=== PATIENT | female | born 1975 | race Caucasian/White ===

== ENCOUNTER 2019-10-06 15:59 | Inpatient (IN) | payer BC ==
--- NOTE | 2019-10-06 16:17 | ED ---
Psychiatric Complaint - HPI Summary HPI Summary: 43 y/o F with hx anorexia, anxiety, depression presenting to [facility] c/o worsening SI, depression, anhedonia, insomnia for 1 month. Patient thinks she is on the verge of having a manic episode. Patient reports leaving the house at 2 am, screaming at her . She hasn't eaten in 2 days. She is worried about the foods and calories she is consuming. She also hasn't slept. She has lost interest in all things that normally make her happy. She denies HI, auditory/visual hallucinations. She doesn't have a suicidal plan. She states she would never commit suicide because of her children but she has thought about taking all her medications to overdose. Patient hadn't seen a psychiatrist in 10 years until last week. She saw new psychiatrist last week who prescribed her a mood stabilizer. Patient doesn't think her medications are working. She continues to have worsening symptoms. She reports her new psychiatrist thinks she may have bipolar disorder. She has been seen by inpatient psychiatry at other facilities but never here. Patient additionally c/ o worsening migraine headaches for 1 month. Hx migraine headaches. Symptoms aggravated by and alleviated by nothing. Medications reviewed. Currently on antibiotics for UTI. Hx endometriosis. Surgical hx: C-sections x2, hysterectomy 3 years ago, oophorectomy. Rare ETOH. Reports 1-2 drinks per year. No recreational or tobacco use. - History Of Current Complaint Chief Complaint: EDSuicidal Time Seen by Provider: 10/06/19 16:05 Hx Obtained From: Patient Onset/Duration: Lasting Weeks - 4, Still Present Timing: Constant Aggravating Factor(s): Nothing Alleviating Factor(s): Nothing Has Suicidal: Reports: Thoughts. Denies: With A Plan Has Homicidal: Denies: Thoughts - Allergies/Home Medications Allergies/Adverse Reactions: Allergies Allergy/AdvReac Type Severity Reaction Status Date / Time No Known Allergies Allergy Verified 10/06/19 16:05 Home Medications: Home Medications Diclofenac Sodium EC TAB* [Voltaren EC TAB*] 50 mg PO Q8HR PRN 10/06/19 [ History Confirmed 10/06/19] Sumatriptan Succ/Naproxen Sod [Sumatriptan/Naproxen Sodi 85-500 mg] 1 tab PO DAILY PRN MDD 2 tabs 10/06/19 [History Confirmed 10/06/19] Venlafaxine EXT RELEASE CAP* [Effexor Xr CAP*] 375 mg PO DAILY 10/06/19 [ History Confirmed 10/06/19] clonazePAM TAB(*) [KlonoPIN TAB(*)] 1 mg PO TID PRN 10/06/19 [History Confirmed 10/06/19] lamoTRIgine TAB(*) [LaMICtal TAB(*)] 25 mg PO DAILY 10/06/19 [History Confirmed 10/06/19] PMH/Surg Hx/FS Hx/Imm Hx History: Reports: Other Problems/Disorders - endometriosis Neurological History: Reports: Hx Migraine Psychiatric History: Reports: Hx Anxiety, Hx Eating Disorder - anorexia, Hx Depression - Surgical History Surgical History: Yes Surgery Procedure, Year, and Place: C-sections x2, hysterectomy 3 years ago, oophorectomy Infectious Disease History: No Infectious Disease History: Denies: Traveled Outside the [place] in Last 30 Days - Social History Alcohol Use: Rare Alcohol Amount: 1-2 drinks per year Substance Use Type: Reports: None Hx Tobacco Use: No Smoking Status (MU): Never Smoked Tobacco Review of Systems Negative: Fever Positive: Other - worsening SI, depression, anhedonia, insomnia; NEG: suicidal plan, HI, auditory/visual hallucinations All Other Systems Reviewed And Are Negative: Yes Physical Exam - Summary Physical Exam Summary: Constitutional: Well-developed, Well-nourished, Alert. (-) Distressed Skin: Warm, Dry HENT: Normocephalic; Atraumatic Eyes: Conjunctiva normal Neck: Musculoskeletal ROM normal neck. (-) JVD, (-) Stridor, (-) Tracheal deviation Cardio: Rhythm regular, rate normal, Heart sounds normal; Intact distal pulses; Radial pulses are 2+ and symmetric. (-) Murmur Pulmonary/Chest wall: Effort normal. (-) Respiratory distress, (-) Wheezes, (-) Rales Abd: Soft, (-) tenderness, (-) Distension, (-) Guarding, (-) Rebound Musculoskeletal: (-) Edema Lymph: (-) Cervical adenopathy Neuro: Alert, Oriented x3 Psych: She is tearful at points Triage Information Reviewed: Yes Vital Signs On Initial Exam: Initial Vitals Temp Pulse Resp BP Pulse Ox 98.1 F 96 17 126/79 100 10/06/19 16:01 10/06/19 16:01 10/06/19 16:01 10/06/19 16:01 10/06/19 16:01 Vital Signs Reviewed: Yes Procedures - Sedation Patient Received Moderate/Deep Sedation with Procedure: No Diagnostics - Vital Signs Vital Signs Temp Pulse Resp BP Pulse Ox 10/06/19 16:01 98.1 F 96 17 126/79 100 - Laboratory Result Diagrams: 10/06/19 16:18 10/06/19 17:40 Lab Statement: Any lab studies that have been ordered have been reviewed, and results considered in the medical decision making process. Re-Evaluation - Re-Evaluation First Eval Re-Evaluation Time: 16:19 - Patient is medically cleared for MHE Course/Dx - Course Course Of Treatment: Patient is here with worsening anxiety, eating disorder symptoms, paranoia. Patient does have suicidal ideation but would not commit suicide as she has a family per her. Patient was medically cleared by myself. Patient was evaluated by the psychiatric team and patient was admitted to the BSU voluntarily. - Differential Dx/Clinical Impression Provider Diagnosis: Major depressive disorder, Unspecified psychosis - Physician Notifications Discussed Care Of Patient With: Ascencion Dietrich Time Discussed With Above Provider: 18:01 Instructed by Provider To: Other - Psychiatric spooler operator reviewed case with Dr. Dietrich. Patient will be admitted voluntarily. Discharge ED - Sign-Out/Discharge Documenting (check all that apply): Patient Departure - Discharge Plan Condition: Stable Disposition: [facility]IATRIC FACILITY[facility] Referrals: Dereje Botello PA [Primary Care Provider] - - Billing Disposition and Condition Condition: STABLE Disposition: Psychiatric Facility [facility] - Attestation Statements Document Initiated by Scribe: Yes Documenting Scribe: Estefania Shearer Provider For Whom Marina is Documenting (Include Credential): Israel Healy MD Scribe Attestation: Estefania Galvin, scribed for Israel Healy MD on 10/06/19 at 1921. Scribe Documentation Reviewed: Yes Provider Attestation: The documentation as recorded by the Estefania lawton accurately reflects the service I personally performed and the decisions made by me, Israel Healy MD Status of Scribe Document: Viewed
[2019-10-06 16:47] LABS: Urine Appearance Cloudy; Urine Bilirubin Negative (Negative); Urine Blood Negative (Negative); Urine Color Yellow; Urine Glucose Negative (Negative); Urine Ketones Negative (Negative); Urine Nitrite Negative (Negative); Urine Protein Negative (Negative); Urine Specific Gravity 1.009 (1.010-1.030); Urine Urobilinogen Negative (Negative)
[2019-10-06 16:59] LABS: Urine Benzodiazepine Screen None Detected (None Detect); Urine Opiates Screen None Detected (None Detect)
[2019-10-06 17:51] LABS: ABS Basophils 0.1 10^3/ul (0-0.2); ABS Eosinophils 0.1 10^3/ul (0-0.6); ABS Lymphocytes 1.9 10^3/ul (1.0-4.8); ABS Monocytes 0.4 10^3/ul (0-0.8); ABS Neutrophils 4.6 10^3/ul (1.5-7.7); Eosinophil % 1.1 %; Hematocrit 39 % (35-47); Hemoglobin 13.4 g/dL (12.0-16.0); Lymphocyte % 27.7 %; Mean Corpuscular HGB Conc 34 g/dL (31-36); Mean Corpuscular Hemoglobin 31 pg (27-31); Mean Corpuscular Volume 92 fL (80-97); Mean Platelet Volume 7.9 fL (7.4-10.4); Platelet Count 235 10^3/uL (150-450); Red Blood Count 4.29 10^6 /uL (3.70-4.87); Red Cell Distribution Width 13 % (10-15)
[2019-10-06 18:13] LABS: Albumin 4.2 g/dL (3.2-5.2); Anion Gap 6 mmol/L (2-11); CO2 Carbon Dioxide 29 mmol/L (22-32); Calcium 9.2 mg/dL (8.6-10.3); Chloride 103 mmol/L (101-111); Potassium 3.9 mmol/L (3.5-5.0); Sodium 138 mmol/L (135-145)
[2019-10-06 18:18] LABS: ALT 13 U/L (7-52); AST 17 U/L (13-39); Albumin/Globulin Ratio 1.6 (1-3); Alkaline Phosphatase 43 U/L (34-104); BUN/Creatinine Ratio 14.6 (8-20); Blood Urea Nitrogen 12 mg/dL (6-24); EGFR African American 92.5 (>60); EGFR Non-African American 76.5 (>60); Globulin 2.7 g/dL (2-4); Glucose 97 mg/dL (70-100); Total Protein 6.9 g/dL (6.4-8.9)
[2019-10-06 18:24] LABS: Acetaminophen < 15 mcg/mL; Alcohol < 10 mg/dL (<10); Salicylate < 2.50 mg/dL (<30)
[2019-10-06] MEDS ORDERED: Al Hydrox/Mg Hydrox/Simet LIQ* 30 ML UDC PO PRN (20:08)
[2019-10-07] MEDS: Vitamin THERAPEUTIC TAB PO SCH (08:40)
[2019-10-07] MEDS: lamoTRIgine TAB(*) 25 MG PO SCH (08:40)
[2019-10-07] MEDS ORDERED: Venlafaxine EXT RELEASE CAP* 75 MG PO SCH (09:00)
--- NOTE | 2019-10-07 09:39 | HP ---
H&P (Free Text) History and Physical: Justification for admission: Immediate Safety. CC " I have been depressed" The patient was brought to [facility] on her own after having suicidal thoughts of overdosing on pills. The patient reported not feeling luis from doing things that once made her feel luis. She denied access to firearms. She reported not sleeping well and wakes up worrying a lot. She reported restricting her food intake over the last 2 days. The patient feels that she is not good enough for anything and despite her family telling her that she is pretty or beautiful she thinks they are lying. She often worries that she is not a good enough or mother. Patient remarked having mood swings and getting upset at her for wanting to take her and her children to [place]. The patient denied homicidal ideation intent or plan. The patient denied auditory and/ or visual hallucinations. The patient often feels left out and reflected on how this is a reoccurring theme in her life. Depression Patient reported feeling depressed and having diminished interests which were found to be enjoyable in the past. She reported having crying spells , and feeling hopeless , and having feelings of worthlessness. She reported unintentional weight loss and loss of appetite. She reported interruption of sleep , and overwhelming feelings of guilt or decreased concentration. She has been having increased suicidal thoughts. Eating disorders: Patient has a history of anorexia and has been restricting her food intake for the past 2 days. Anxiety She reported feeling restless, and often worries about being a good enough or mother. Bipolar She reported rapid mood swings that do not last more than one day. She describes them as intense periods of irritability. She denied symptoms of parveen such as having many ideas at once, increased talkativeness where no one can interrupt. Denied feeling irritable most of the time while having an persistent abundance of energy , having the decreased need to sleep for days , or prolong periods of feeling on top of the world. Denied impulsive risky sexual encounters. Denied spending money recklessly , going on spending sprees wiping out savings. Denied impulsively traveling out of town or country, having super narayan, and unrealistic wealth or fame. Psychosis Does not endorse hearing things that other people do not hear or seeing things other people do not see. Denied feeling that TV is making references. Denied feeling that people are spying , following , or reading their thoughts. Phobias: Patient denied having excessive fear of a particular thing or situation. PTSD Denied flashbacks, nightmares and avoidance of a prior traumatic event. PAST PSYCHIATRIC HISTORY: Prior Diagnosis : Anorexia nervosa, Major depressive disorder, Generalized anxiety disorder. History of past Psychiatric Hospitalizations: 2 prior psychiatric admission for anorexia at [facility] and [facility] in [place]. History of past suicide/homicide attempts : 2 past suicide attempts around age 16 , both times she Overdosed on pills. She denied repeated self injurious behavior. Denied history of violence. Outpatient follow-up: Dr. Cool Psychiatrist in [facility]. Patient currently in couples counseling. Medications: Past trials of medications include Abilify, seroquel. Current medications include Effexor 375mg po daily since 3 years ago by PCP, Klonopin for anxiety, Lamotrigine 25mg po daily started one week ago by Psychiatrist. Guardianship: None. FAMILY HISTORY: - Suicide: Denied family history of suicide. - Mental illness: Sister has bipolar disorder, mother depression - Substance abuse: Denied substance abuse among family members. SUBSTANCE ABUSE HISTORY: - EtOH: 1-2 drinks per year. - Tobacco: Denied - Cannabis: Denied - Heroin: Denied - Cocaine: Denied - Substance abuse treatment: Denied past substance abuse treatment SOCIAL HISTORY: - Born in [place], [place] and raised by her mother, her father left her mother when she was , She now has some contact with her biological father. - Education: No history of special education. - Living situation: Currently lives in [facility] with her and 2 children - Employment history: Works as a travel specialist in [place] - Relationship: and has 2 children. - Legal history: Denied - service history: Denied PAST MEDICAL HISTORY: Headaches, history of UTI, Endometriosis. Surgical history includes hysterectomy and oophorectomy - Allergies: Denied drug or other allergies. Physical Exam: Please see ED note Mental Status Exam on Admission APPEARANCE : 43 year old female who appears stated age. Patient is thin, and appears to have fair hygiene and grooming. BEHAVIOR: Cooperative , calm EYE CONTACT: Fair PSYCHOMOTOR ACTIVITY: No psychomotor agitation or retardation. MOVEMENTS: No abnormal movements observed. SPEECH : Normal rate, rhythm, volume and tone. MOOD : "Depressed " AFFECT : Type is depressed and anxious, Range is restricted Mood Congruent Incongruent THOUGHT PROCESS: Formulated and organized in a logical, linear goal directed manner. No flight of ideas, neologism (made up words) , perseveration , tangential , loose associations , or circumstantiality, Poverty of thought, thought blocking THOUGHT CONTENT: preoccupation with body image PERCEPTION: No current auditory or visual hallucinations. Doesnt appear to be responding to internal cues. No evidence of depersonalization , de-realization, or illusions SUICIDALITY Suicidal ideation HOMICIDALITY Denied homicidal ideation, intent or plan. Insight/judgment: Poor insight and judgment ORIENTATION: Oriented to self, location, and time. Diagnosis on Admission: Anorexia nervosa, Major depressive disorder, Generalized anxiety disorder. Assessment: 43 year old Female with a history of Anorexia nervosa, Major depressive disorder, Generalized anxiety disorder presented to the emergency department with suicidal ideation and was admitted to the BSU at [facility]. Plan #Admit to BSU, Q15 minute observation. Start vegetarian diet. Encourage participation in group therapy and psychoeducation # Nutrition Consult #Patient evaluated in ED and was determined by the emergency room Physician to be medically fit for admission to the BSU. # Justification for Admission: For immediate safety per outlined in the [place] Mental Hygiene Code. # The patient requires psychiatric inpatient admission at this time to assure safety, receive treatment and work toward stabilization. # Labs ordered: CBC, CMP, UDS, TSH, HBA1c, TSH, Toxicology screen, Urine analysis, and lipid profile. # Plan to monitor for metabolic changes by weight, HBA1c, glucose, and lipid panel # EKG ordered # Monitor food intake # Start Remeron 7.5mg qhs # Confirmed Effexor dose 375mg po daily from the patients pharmacy. #Continue lamotrigine 25mg daily she denied any skin changes. # B-HCG was ordered and results are negative. # Obtain collateral information once release is signed. # Collaboration with Media Analyst Joy Jung #Goals before discharge include: Psychiatric Stabilization Patient strengths: Motivation to want to get better Tentative Discharge: Pending hospital course and response to treatment The risks, benefits, and alternative treatment options were discussed as well as the risks of refusing treatment. After this discussion and an acknowledgement of this understanding was made. A risk/ benefit assessment of treatment was considered and discussed with the patient. When comparing the risks of treatment with the dangers of not receiving treatment, the benefits of treatment outweigh the treatment risks at this time. Risks of allergy, suicidal ideation, behavioral changes, dystonia, electrolyte imbalances, movement disorders, cardiac conduction changes, serotonin syndrome, metabolic risks were among some of the risks discussed. Acetaminophen (Tylenol Tab*) 650 mg PO Q4H PRN PRN Reason: PAIN or TEMP > 101 F Al Hydrox/Mg Hydrox/Simethicone (Maalox Plus*) 30 ml PO Q4H PRN PRN Reason: INDIGESTION Clonazepam (Klonopin Tab(*)) 1 mg PO TID PRN PRN Reason: ANXIETY Diclofenac Sodium (Voltaren Ec Tab*) 50 mg PO Q8H PRN PRN Reason: PAIN - MILD Lamotrigine (Lamictal Tab(*)) 25 mg PO DAILY [facility] Last Admin: 10/07/19 08:40 Dose: 25 mg Mirtazapine (Remeron Tab*) 7.5 mg PO BEDTIME [facility] Multivitamins (Theragran Tab*) 1 tab PO DAILY [facility] Last Admin: 10/07/19 08:40 Dose: 1 tab Naproxen (Naprosyn Tab*) 500 mg PO DAILY PRN PRN Reason: PAIN-MIGRAINE Sumatriptan Succinate (Imitrex Tab*) 100 mg PO DAILY PRN PRN Reason: MIGRAINE HEADACHE Venlafaxine HCl (Effexor Xr Cap*) 375 mg PO DAILY [facility]
[2019-10-07 11:00] LABS: HCG Pregnancy 0.12 mIU/mL
[2019-10-07] MEDS ORDERED: Venlafaxine EXT RELEASE CAP* 75 MG PO ONE (12:20)
[2019-10-07] MEDS ORDERED: Venlafaxine ER (NF) 150 MG CAP.ER PO SCH (13:00)
[2019-10-07] MEDS: Diclofenac Sodium EC TAB* 25 MG PO PRN (14:59)
[2019-10-07] MEDS: SUMAtriptan TAB* 100 MG PO PRN (15:00)
[2019-10-07] MEDS: Mirtazapine TAB* 15 MG PO SCH (21:44)
[2019-10-07] MEDS: Acetaminophen TAB* 325 MG PO PRN (21:45)
[2019-10-08 08:26] LABS: HDL Cholesterol 62.1 mg/dL
[2019-10-08] MEDS: Venlafaxine EXT RELEASE CAP* 75 MG PO SCH (08:58)
[2019-10-08] MEDS: lamoTRIgine TAB(*) 25 MG PO SCH (08:59)
[2019-10-08] MEDS: Vitamin THERAPEUTIC TAB PO SCH (08:59)
--- NOTE | 2019-10-08 11:24 | PN ---
Subjective - Subjective Date of Service: 10/08/19 Service Type: [id number] Hosp care 35 min high complexity Subjective: Nursing Report: Patient was visible on unit, no behavioral incidents. Slept 6hrs overnight. Attending group activities. CC: "I am doing better This patient was seen and evaluated today. She reported feeling foggy when she first woke up. She spoke about the sap trainer that she became friends with and how her found out about 800 text messages. She reported being fearful about weighing herself because she will think she needs to lose 20 pounds. She expressed missing the link trainer maintenance man and wants to know ways to stop thinking about him. She reported getting better sleep than she usually does. She asked about exercising and when she doesnt she feels inadequate about herself. She reported eating salad last night and did not eat dinner. She reported having adequate appetite and sleep. The patient reported attending day groups. Per nursing no behavioral issues or overnight events reported. Patient reported that she is tolerating medications without side effects. Objective - General Observations Appearance: Neat Appears Stated Age: Yes Stature: WNL Posture: WNL Eye Contact: Average Behavior/Activity: WNL - Interaction Observations Attitude Towards Examiner: Cooperative Stated Mood: Dysphoric Affect: Restricted Speech Pattern/Tone: Quiet Volume Thought Process: Coherent Perception: WNL Thought Content: Obsessional, Depressive, Self-Deprecatory Thought Process: Lethality: Passive Wish Hallucination Type: Denies Delusion Type: Denies - Cognitive Function Orientation: A&O x 4 Level of Consciousness: Awake Cognition: WNL - Medication Compliance Cooperative with Inpatient Medication Regimen: Yes - Group Participation Participates in Group Activities: Yes Assessment - Assessment Merits Inpatient Hospitalization: For Immediate Safety Clinical Impression: 43 year old Female with a history of Anorexia nervosa, Major depressive disorder, Generalized anxiety disorder presented to the emergency department with suicidal ideation and was admitted to the BSU at [facility]. Plan - Plan Treatment Plan: Name: GOPAL LUNA Birthdate: 1975 [id number] #Q30 minute observation with staff pass # Nutrition Consult completed # The patient requires psychiatric inpatient admission at this time to assure safety, receive treatment and work toward stabilization. # Continue Remeron 7.5mg qhs # Confirmed Effexor dose 375mg po daily this dose was confirmed from the patients pharmacy. #Continue lamotrigine 25mg daily she denied any skin changes. # Obtain collateral information once release is signed. # Collaboration with Shipping Hand Joy Jung # Recommend continuing CBT once discharged #Goals before discharge include: Psychiatric Stabilization Patient strengths: Motivation to want to get better Tentative Discharge: Pending hospital course and response to treatment Continued Medication Management: Continue Outpt Medication Medications: Current Medications Acetaminophen (Tylenol Tab*) 650 mg PO Q4H PRN PRN Reason: PAIN or TEMP > 101 F Last Admin: 10/07/19 21:45 Dose: 650 mg Al Hydrox/Mg Hydrox/Simethicone (Maalox Plus*) 30 ml PO Q4H PRN PRN Reason: INDIGESTION Clonazepam (Klonopin Tab(*)) 1 mg PO TID PRN PRN Reason: ANXIETY Diclofenac Sodium (Voltaren Ec Tab*) 50 mg PO Q8H PRN PRN Reason: PAIN - MILD Last Admin: 10/07/19 14:59 Dose: 50 mg Lamotrigine (Lamictal Tab(*)) 25 mg PO DAILY [facility] Last Admin: 10/08/19 08:59 Dose: 25 mg Mirtazapine (Remeron Tab*) 7.5 mg PO BEDTIME [facility] Last Admin: 10/07/19 21:44 Dose: 7.5 mg Multivitamins (Theragran Tab*) 1 tab PO DAILY [facility] Last Admin: 10/08/19 08:59 Dose: 1 tab Naproxen (Naprosyn Tab*) 500 mg PO DAILY PRN PRN Reason: PAIN-MIGRAINE Sumatriptan Succinate (Imitrex Tab*) 100 mg PO DAILY PRN PRN Reason: MIGRAINE HEADACHE Last Admin: 10/07/19 15:00 Dose: 100 mg Venlafaxine HCl (Effexor Xr Cap*) 375 mg PO DAILY [facility] Last Admin: 10/08/19 08:58 Dose: 375 mg - Discharge Plan Discharge Plan: Inpatient Hospitalization
[2019-10-08] MEDS: Mirtazapine TAB* 15 MG PO SCH (21:09)
[2019-10-09] MEDS: clonazePAM TAB(*) 1 MG PO PRN (08:17)
[2019-10-09] MEDS: lamoTRIgine TAB(*) 25 MG PO SCH (08:18)
[2019-10-09] MEDS: Venlafaxine EXT RELEASE CAP* 75 MG PO SCH (08:18)
[2019-10-09] MEDS: Vitamin THERAPEUTIC TAB PO SCH (08:18)
[2019-10-09] MEDS ORDERED: Polyethylene Glycol 3350* 17 GM PACKET PO ONE (10:10)
--- NOTE | 2019-10-09 11:02 | PN ---
Subjective - Subjective Date of Service: 10/09/19 Service Type: [id number] Hosp care 35 min high complexity Subjective: Nursing Report: Patient was visible on unit, no behavioral incidents. Poor sleep overnight. Attending group activities. CC: "I am mad at myself This patient was seen and evaluated today. She reported being mad at herself because she called her software trainer and felt horrible for doing it afterwards. She reported feeling bloated after eating. She reported that the person next to her kept her up last night and she did not receive good sleep. She ate salad for breakfast. The patient reported attending day groups. Per nursing no behavioral issues or overnight events reported. Patient reported that she is tolerating medications without side effects. The patient reported that her therapist was going to find out if the color strainer she was seeing has a criminal history. Objective - General Observations Appearance: Neat Appears Stated Age: Yes Stature: Thin Posture: WNL Eye Contact: Average Behavior/Activity: WNL - Interaction Observations Attitude Towards Examiner: Cooperative, Anxious Stated Mood: Dysphoric Affect: Restricted Speech Pattern/Tone: Quiet Volume Thought Process: Coherent, Goal Directed Perception: Reexperiencing Thought Content: Preoccupation/Ruminations, Obsessional, Self-Deprecatory Thought Process: Lethality: Passive Wish Hallucination Type: Denies Delusion Type: Denies - Cognitive Function Orientation: A&O x 4 Level of Consciousness: Awake Cognition: WNL - Medication Compliance Cooperative with Inpatient Medication Regimen: Yes - Group Participation Participates in Group Activities: Yes Assessment - Assessment Merits Inpatient Hospitalization: For Immediate Safety Clinical Impression: 43 year old Female with a history of Anorexia nervosa, Major depressive disorder, Generalized anxiety disorder presented to the emergency department with suicidal ideation and was admitted to the B[facility] at [facility]. Plan - Plan Treatment Plan: Name: GOPAL LUNA Birthdate: 1975 [id number] #Q30 minute observation with staff pass and computer # Nutrition Consult completed # The patient requires psychiatric inpatient admission at this time to assure safety, receive treatment and work toward stabilization. # Increase Remeron 15mg qhs # Confirmed Effexor dose 375mg po daily this dose was confirmed from the patients pharmacy. #Continue lamotrigine 25mg daily she denied any skin changes. # Collaboration with Electronics Mechanic Joy Jung # Recommend continuing CBT once discharged #Goals before discharge include: Psychiatric Stabilization Patient strengths: Motivation to want to get better Tentative Discharge: Pending hospital course and response to treatment Continued Medication Management: Continue Outpt Medication Medications: Current Medications Acetaminophen (Tylenol Tab*) 650 mg PO Q4H PRN PRN Reason: PAIN or TEMP > 101 F Last Admin: 10/07/19 21:45 Dose: 650 mg Al Hydrox/Mg Hydrox/Simethicone (Maalox Plus*) 30 ml PO Q4H PRN PRN Reason: INDIGESTION Clonazepam (Klonopin Tab(*)) 1 mg PO TID PRN PRN Reason: ANXIETY Last Admin: 10/09/19 08:17 Dose: 1 mg Diclofenac Sodium (Voltaren Ec Tab*) 50 mg PO Q8H PRN PRN Reason: PAIN - MILD Last Admin: 10/07/19 14:59 Dose: 50 mg Lamotrigine (Lamictal Tab(*)) 25 mg PO DAILY [facility] Last Admin: 10/09/19 08:18 Dose: 25 mg Mirtazapine (Remeron Tab*) 15 mg PO BEDTIME [facility] Multivitamins (Theragran Tab*) 1 tab PO DAILY [facility] Last Admin: 10/09/19 08:18 Dose: 1 tab Naproxen (Naprosyn Tab*) 500 mg PO DAILY PRN PRN Reason: PAIN-MIGRAINE Sumatriptan Succinate (Imitrex Tab*) 100 mg PO DAILY PRN PRN Reason: MIGRAINE HEADACHE Last Admin: 10/07/19 15:00 Dose: 100 mg Venlafaxine HCl (Effexor Xr Cap*) 375 mg PO DAILY [facility] Last Admin: 10/09/19 08:18 Dose: 375 mg - Discharge Plan Discharge Plan: Inpatient Hospitalization
--- NOTE | 2019-10-09 11:53 | PN ---
BSU: Group Therapy Note - Service Type Service Type: [id number] Group Psychotherapy - Cognitive Behavioral Group Therapy ( CBT):Patient was attentive and participatory in CBT programming this morning, and remained in good behavioral control. Patient expressed positive insights regarding relevant treatment interventions and goals. Further discussion addressed her difficulties with a former logging crew supervisor and how to find alternate ways to express frustration, other than exercise. Presents with good affect and takes notes in group, and interacts well with staff and peers.
[2019-10-09] MEDS: Mirtazapine TAB* 15 MG PO SCH (20:39)
[2019-10-10] MEDS: Venlafaxine EXT RELEASE CAP* 75 MG PO SCH (09:17)
[2019-10-10] MEDS: lamoTRIgine TAB(*) 25 MG PO SCH (09:18)
[2019-10-10] MEDS: Vitamin THERAPEUTIC TAB PO SCH (09:18)
[2019-10-10] MEDS: clonazePAM TAB(*) 1 MG PO PRN ×2 (09:20→15:58)
--- NOTE | 2019-10-10 10:14 | PN ---
Subjective - Subjective Date of Service: 10/10/19 Service Type: [id number] Hosp care 35 min high complexity Subjective: Nursing Report: Patient was visible on unit, no behavioral incidents. Attending group activities. CC: "I am depressed This patient was seen and evaluated today. She reported that her call center trainer lied to her and said that he knows someone at the hospital that told him that she was at the hospital. The patient reported that she lied to her about who told her because he didnt want to get him upset. The patient reported eating and feeling bad about it. Patient reported that she is tolerating medications without side effects. Objective - General Observations Appearance: Neat Appears Stated Age: Yes Stature: WNL Posture: Tense Eye Contact: Average Behavior/Activity: Accelerated, Impulsive - Interaction Observations Attitude Towards Examiner: Anxious Stated Mood: Anxious Affect: Restricted Speech Pattern/Tone: Normal Volume Thought Process: Coherent Perception: WNL Thought Content: Preoccupation/Ruminations, Obsessional, Depressive, Self- Deprecatory Thought Process: Lethality: Passive Wish Hallucination Type: Denies Delusion Type: Somatic - Cognitive Function Orientation: A&O x 4 Level of Consciousness: Awake Cognition: WNL Estimated Intelligence: Normal Insight: Mostly Blames Others for Problems - Medication Compliance Cooperative with Inpatient Medication Regimen: Yes - Group Participation Participates in Group Activities: Yes Assessment - Assessment Merits Inpatient Hospitalization: For Immediate Safety Clinical Impression: 43 year old Female with a history of Anorexia nervosa, Major depressive disorder, Generalized anxiety disorder presented to the emergency department with suicidal ideation and was admitted to the BSU at [facility]. Plan - Plan Treatment Plan: Name: GOPAL LUNA Birthdate: 1975 [id number] #Q30 minute observation with staff pass and computer 1hr/ day # Nutrition Consult completed # The patient requires psychiatric inpatient admission at this time to assure safety, receive treatment and work toward stabilization. # Remeron 15mg qhs # Do not give laxative # Confirmed Effexor dose 375mg po daily this dose was confirmed from the patients pharmacy. # Increase lamotrigine 50mg daily to monitor for any skin changes. # Collaboration with Teacher'S Aide Joy Jung # Recommend continuing CBT once discharged #Goals before discharge include: Psychiatric Stabilization Patient strengths: Motivation to want to get better Tentative Discharge: Pending hospital course and response to treatment Continued Medication Management: Continue Outpt Medication Medications: Current Medications Acetaminophen (Tylenol Tab*) 650 mg PO Q4H PRN PRN Reason: PAIN or TEMP > 101 F Last Admin: 10/07/19 21:45 Dose: 650 mg Al Hydrox/Mg Hydrox/Simethicone (Maalox Plus*) 30 ml PO Q4H PRN PRN Reason: INDIGESTION Clonazepam (Klonopin Tab(*)) 1 mg PO TID PRN PRN Reason: ANXIETY Last Admin: 10/10/19 09:20 Dose: 1 mg Diclofenac Sodium (Voltaren Ec Tab*) 50 mg PO Q8H PRN PRN Reason: PAIN - MILD Last Admin: 10/07/19 14:59 Dose: 50 mg Mirtazapine (Remeron Tab*) 15 mg PO BEDTIME [facility] Last Admin: 10/09/19 20:39 Dose: 15 mg Multivitamins (Theragran Tab*) 1 tab PO DAILY [facility] Last Admin: 10/10/19 09:18 Dose: 1 tab Naproxen (Naprosyn Tab*) 500 mg PO DAILY PRN PRN Reason: PAIN-MIGRAINE Sumatriptan Succinate (Imitrex Tab*) 100 mg PO DAILY PRN PRN Reason: MIGRAINE HEADACHE Last Admin: 10/07/19 15:00 Dose: 100 mg Venlafaxine HCl (Effexor Xr Cap*) 375 mg PO DAILY [facility] Last Admin: 10/10/19 09:17 Dose: 375 mg - Discharge Plan Discharge Plan: Inpatient Hospitalization
[2019-10-10] MEDS: Acetaminophen TAB* 325 MG PO PRN (21:33)
[2019-10-10] MEDS: Mirtazapine TAB* 15 MG PO SCH (21:34)
[2019-10-11] MEDS: Vitamin THERAPEUTIC TAB PO SCH (09:35)
[2019-10-11] MEDS: Venlafaxine EXT RELEASE CAP* 75 MG PO SCH (09:36)
[2019-10-11] MEDS: lamoTRIgine TAB(*) 25 MG PO SCH (09:36)
[2019-10-11] MEDS: clonazePAM TAB(*) 1 MG PO PRN ×2 (09:37→13:21)
[2019-10-11] MEDS: Mirtazapine TAB* 15 MG PO SCH (21:00)
--- NOTE | 2019-10-11 21:10 | PN ---
Subjective - Subjective Date of Service: 10/11/19 Service Type: 53242 Hosp care 15 min low complexity Subjective: Eve reports still having some passive SI as in welcoming in her sleep, but no intent or plan toward suicide. Slept well last night after taking Tylenol, only 2 good nights of sleep since she has been here. No physical complaints, and specifically no migraines. Likes the groups here, especially CBT. Reports mood "not great, bad night last night, at rock bottom again." Objective - General Observations Appearance: Neat Appears Stated Age: Yes Stature: WNL Posture: WNL Eye Contact: Average Behavior/Activity: WNL - Interaction Observations Attitude Towards Examiner: Cooperative Stated Mood: Dysphoric - but calm and even affect Affect: Full Speech Pattern/Tone: Clear, Appropriate, Normal Volume Thought Process: Coherent, Goal Directed Perception: WNL Thought Content: WNL Thought Process: Lethality: Passive Wish Hallucination Type: None Delusion Type: None - Cognitive Function Orientation: A&O x 4 Level of Consciousness: Awake, Alert, Appropriate Estimated Intelligence: Normal Insight: WNL - Medication Compliance Cooperative with Inpatient Medication Regimen: Yes - Group Participation Participates in Group Activities: Yes Assessment - Assessment Merits Inpatient Hospitalization: For Immediate Safety, For Stabilization, For Discharge Planning Clinical Impression: 43 year old Female with a history of Anorexia nervosa, Major depressive disorder, Generalized anxiety disorder presented to the emergency department with suicidal ideation and was admitted to the BSU at [facility]. on 10.11.19, reports bad night last night, continued passive SI, no other complaints Plan - Plan Treatment Plan: Name: EVE LUNA Birthdate: 1975 [id number] #Q30 minute observation with staff pass and computer 1hr/ day # Nutrition Consult completed # The patient requires psychiatric inpatient admission at this time to assure safety, receive treatment and work toward stabilization. # Remeron 15mg qhs # Do not give laxative # Confirmed Effexor dose 375mg po daily this dose was confirmed from the patients pharmacy. # Increase lamotrigine 50mg daily to monitor for any skin changes. # Collaboration with Photography Intern Joy Jung # Recommend continuing CBT once discharged #Goals before discharge include: Psychiatric Stabilization Patient strengths: Motivation to want to get better Tentative Discharge: Pending hospital course and response to treatment No change of plan on 10.11.19 Medications: Current Medications Acetaminophen (Tylenol Tab*) 650 mg PO Q4H PRN PRN Reason: PAIN or TEMP > 101 F Last Admin: 10/10/19 21:33 Dose: 650 mg Al Hydrox/Mg Hydrox/Simethicone (Maalox Plus*) 30 ml PO Q4H PRN PRN Reason: INDIGESTION Clonazepam (Klonopin Tab(*)) 1 mg PO TID PRN PRN Reason: ANXIETY Last Admin: 10/11/19 13:21 Dose: 1 mg Diclofenac Sodium (Voltaren Ec Tab*) 50 mg PO Q8H PRN PRN Reason: PAIN - MILD Last Admin: 10/07/19 14:59 Dose: 50 mg Lamotrigine (Lamictal Tab(*)) 50 mg PO DAILY [facility] Last Admin: 10/11/19 09:36 Dose: 50 mg Mirtazapine (Remeron Tab*) 15 mg PO BEDTIME [facility] Last Admin: 10/11/19 21:00 Dose: 15 mg Multivitamins (Theragran Tab*) 1 tab PO DAILY [facility] Last Admin: 10/11/19 09:35 Dose: 1 tab Naproxen (Naprosyn Tab*) 500 mg PO DAILY PRN PRN Reason: PAIN-MIGRAINE Sumatriptan Succinate (Imitrex Tab*) 100 mg PO DAILY PRN PRN Reason: MIGRAINE HEADACHE Last Admin: 10/07/19 15:00 Dose: 100 mg Venlafaxine HCl (Effexor Xr Cap*) 375 mg PO DAILY [facility] Last Admin: 10/11/19 09:36 Dose: 375 mg - Discharge Plan Discharge Plan: Outpatient Follow Up Outpatient Program: [facility] providers
[2019-10-12] MEDS: lamoTRIgine TAB(*) 25 MG PO SCH (08:34)
[2019-10-12] MEDS: Venlafaxine EXT RELEASE CAP* 75 MG PO SCH (08:35)
[2019-10-12] MEDS: Vitamin THERAPEUTIC TAB PO SCH (08:35)
[2019-10-12] MEDS: clonazePAM TAB(*) 1 MG PO PRN ×2 (08:36→14:53)
[2019-10-12] MEDS: Mirtazapine TAB* 15 MG PO SCH (21:29)
--- NOTE | 2019-10-13 08:41 | PN ---
Subjective - Subjective Date of Service: 10/13/19 Service Type: [id number] Hosp care 35 min high complexity Subjective: Nursing Report: Patient was visible on unit, no behavioral incidents. Slept 6hrs overnight. Attending group activities. CC: "I feel that I went backwards This patient was seen and evaluated today. She reported feeling that she had many setbacks over the weekend and is mad at herself. She noted having a panic attack for 10min on Sunday and purged her food after eating. She saw her and her friend through the window and when they left she became sad and anxious. She reported feeling low self esteem and will do everything not to make people upset with her. She said that she is glad to be in the hospital because she would not be able to control herself if she faced the things like she did over the weekend. Patient plans to eat lunch today. Patient reported that she is tolerating medications without side effects. Objective - General Observations Appearance: Neat Appears Stated Age: Yes Stature: Thin Posture: Tense Eye Contact: Intense Behavior/Activity: Impulsive - Interaction Observations Attitude Towards Examiner: Anxious Stated Mood: Anxious Affect: Restricted Speech Pattern/Tone: Normal Volume Thought Process: Coherent, Goal Directed Perception: WNL Thought Content: Obsessional, Depressive, Self-Deprecatory Thought Process: Lethality: Passive Wish Hallucination Type: Denies Delusion Type: Somatic - Cognitive Function Orientation: A&O x 4 Level of Consciousness: Awake Estimated Intelligence: Normal Insight: WNL - Medication Compliance Cooperative with Inpatient Medication Regimen: Yes - Group Participation Participates in Group Activities: Yes Assessment - Assessment Merits Inpatient Hospitalization: For Immediate Safety Clinical Impression: 43 year old Female with a history of Anorexia nervosa, Major depressive disorder, Generalized anxiety disorder presented to the emergency department with suicidal ideation and was admitted to the BSU at [facility]. Plan - Plan Treatment Plan: Name: GOPAL LUNA Birthdate: 1975 [id number] #Q30 minute observation with staff pass and computer 1hr/ day # Nutrition Consult completed # The patient requires psychiatric inpatient admission at this time to assure safety, receive treatment and work toward stabilization. # Remeron 15mg qhs # Do not give laxative # Buspar 15mg BID # Monitor food intake and monitor periods following eating # Confirmed Effexor dose 375mg po daily this dose was confirmed from the patients pharmacy. # Continue Lamotrigine 50mg daily to monitor for any skin changes. # Collaboration with Report Specialist Joy Jung # Recommend continuing CBT once discharged #Goals before discharge include: Psychiatric Stabilization Patient strengths: Motivation to want to get better Tentative Discharge: Pending hospital course and response to treatment Continued Medication Management: Continue Outpt Medication Medications: Current Medications Acetaminophen (Tylenol Tab*) 650 mg PO Q4H PRN PRN Reason: PAIN or TEMP > 101 F Last Admin: 10/10/19 21:33 Dose: 650 mg Al Hydrox/Mg Hydrox/Simethicone (Maalox Plus*) 30 ml PO Q4H PRN PRN Reason: INDIGESTION Clonazepam (Klonopin Tab(*)) 1 mg PO TID PRN PRN Reason: ANXIETY Last Admin: 10/12/19 14:53 Dose: 1 mg Diclofenac Sodium (Voltaren Ec Tab*) 50 mg PO Q8H PRN PRN Reason: PAIN - MILD Last Admin: 10/07/19 14:59 Dose: 50 mg Lamotrigine (Lamictal Tab(*)) 50 mg PO DAILY [facility] Last Admin: 10/12/19 08:34 Dose: 50 mg Mirtazapine (Remeron Tab*) 15 mg PO BEDTIME [facility] Last Admin: 10/12/19 21:29 Dose: 15 mg Multivitamins (Theragran Tab*) 1 tab PO DAILY [facility] Last Admin: 10/12/19 08:35 Dose: 1 tab Naproxen (Naprosyn Tab*) 500 mg PO DAILY PRN PRN Reason: PAIN-MIGRAINE Sumatriptan Succinate (Imitrex Tab*) 100 mg PO DAILY PRN PRN Reason: MIGRAINE HEADACHE Last Admin: 10/07/19 15:00 Dose: 100 mg Venlafaxine HCl (Effexor Xr Cap*) 375 mg PO DAILY [facility] Last Admin: 10/12/19 08:35 Dose: 375 mg - Discharge Plan Discharge Plan: Inpatient Hospitalization
[2019-10-13] MEDS: Acetaminophen TAB* 325 MG PO PRN (08:46)
[2019-10-13] MEDS: clonazePAM TAB(*) 1 MG PO PRN ×2 (08:47→14:27)
[2019-10-13] MEDS: Vitamin THERAPEUTIC TAB PO SCH (08:48)
[2019-10-13] MEDS: lamoTRIgine TAB(*) 25 MG PO SCH (08:48)
[2019-10-13] MEDS: Venlafaxine EXT RELEASE CAP* 75 MG PO SCH (08:49)
[2019-10-13] MEDS: SUMAtriptan TAB* 100 MG PO PRN (16:31)
[2019-10-13] MEDS: Naproxen TAB* 250 MG PO PRN (16:31)
[2019-10-13] MEDS: Mirtazapine TAB* 15 MG PO SCH (21:44)
[2019-10-13] MEDS: busPIRone TAB* 15 MG PO SCH (21:44)
[2019-10-14] MEDS: busPIRone TAB* 15 MG PO SCH ×2 (08:26→21:11)
[2019-10-14] MEDS: lamoTRIgine TAB(*) 25 MG PO SCH (08:26)
[2019-10-14] MEDS: Vitamin THERAPEUTIC TAB PO SCH (08:26)
[2019-10-14] MEDS: Venlafaxine EXT RELEASE CAP* 75 MG PO SCH (08:26)
[2019-10-14] MEDS: clonazePAM TAB(*) 1 MG PO PRN ×2 (08:28→13:52)
--- NOTE | 2019-10-14 10:52 | PN ---
Subjective - Subjective Date of Service: 10/14/19 Service Type: [id number] Hosp care 35 min high complexity Subjective: Patient reported eating this morning and felt guilty about it and purged. She reported having disrupted sleep. She thinks about calling the personal computer specialist and wants to limit the time consumed thinking about that. Discharge goals include eating 2x daily without purging, complete one journal assignment per day, sleep 6hr or more per night, decrease time thinking about personal computer specialist to be less than 5 hours daily. Objective - General Observations Appearance: Neat Appears Stated Age: Yes Stature: Thin Posture: Tense Eye Contact: Intense Behavior/Activity: Impulsive - Interaction Observations Attitude Towards Examiner: Anxious Stated Mood: Dysphoric, Anxious Affect: Restricted Speech Pattern/Tone: Perseverating Thought Process: Coherent, Goal Directed Perception: WNL Thought Content: Preoccupation/Ruminations, Obsessional, Depressive, Self- Deprecatory Hallucination Type: Denies Delusion Type: Denies - Cognitive Function Orientation: A&O x 4 Level of Consciousness: Awake - Medication Compliance Cooperative with Inpatient Medication Regimen: Yes - Group Participation Participates in Group Activities: Yes Assessment - Assessment Merits Inpatient Hospitalization: For Immediate Safety Clinical Impression: 43 year old Female with a history of Anorexia nervosa, Major depressive disorder, Generalized anxiety disorder presented to the emergency department with suicidal ideation and was admitted to the BSU at [facility]. Plan - Plan Treatment Plan: Name: GOPAL LUNA Birthdate: 1975 [id number] #Q30 minute observation with staff pass # Nutrition Consult completed # The patient requires psychiatric inpatient admission at this time to assure safety, receive treatment and work toward stabilization. # Remeron 15mg qhs # Do not give laxative # Buspar 15mg BID # Patient can use [employer] provided computer 1 hr per day with staff assistance to contact family friends and receive work email # Monitor food intake and monitor for 1 hour following eating to prevent purging. # Confirmed Effexor dose 375mg po daily this dose was confirmed from the patients pharmacy. # Continue Lamotrigine 50mg daily to monitor for any skin changes. # Collaboration with Physical Therapy Manager Joy Jung #Discharge goals include eating 2x daily without purging, complete one journal assignment per day, sleep 6hr or more per night, decrease time thinking about personal computer specialist to be less than 5 hours daily. #Goals before discharge include: Psychiatric Stabilization Tentative Discharge: Sunday depending on achieving stabilization Continued Medication Management: Continue Outpt Medication Medications: Current Medications Acetaminophen (Tylenol Tab*) 650 mg PO Q4H PRN PRN Reason: PAIN or TEMP > 101 F Last Admin: 10/13/19 08:46 Dose: 650 mg Al Hydrox/Mg Hydrox/Simethicone (Maalox Plus*) 30 ml PO Q4H PRN PRN Reason: INDIGESTION Buspirone HCl (Buspar Tab *) 15 mg PO BID [facility] Last Admin: 10/14/19 08:26 Dose: 15 mg Clonazepam (Klonopin Tab(*)) 1 mg PO TID PRN PRN Reason: ANXIETY Last Admin: 10/14/19 08:28 Dose: 1 mg Diclofenac Sodium (Voltaren Ec Tab*) 50 mg PO Q8H PRN PRN Reason: PAIN - MILD Last Admin: 10/07/19 14:59 Dose: 50 mg Lamotrigine (Lamictal Tab(*)) 50 mg PO DAILY [facility] Last Admin: 10/14/19 08:26 Dose: 50 mg Mirtazapine (Remeron Tab*) 15 mg PO BEDTIME [facility] Last Admin: 10/13/19 21:44 Dose: 15 mg Multivitamins (Theragran Tab*) 1 tab PO DAILY [facility] Last Admin: 10/14/19 08:26 Dose: 1 tab Naproxen (Naprosyn Tab*) 500 mg PO DAILY PRN PRN Reason: PAIN-MIGRAINE Last Admin: 10/13/19 16:31 Dose: 500 mg Sumatriptan Succinate (Imitrex Tab*) 100 mg PO DAILY PRN PRN Reason: MIGRAINE HEADACHE Last Admin: 10/13/19 16:31 Dose: 100 mg Venlafaxine HCl (Effexor Xr Cap*) 375 mg PO DAILY [facility] Last Admin: 10/14/19 08:26 Dose: 375 mg - Discharge Plan Discharge Plan: Inpatient Hospitalization
[2019-10-14] MEDS: Naproxen TAB* 250 MG PO PRN (13:52)
[2019-10-14] MEDS: SUMAtriptan TAB* 100 MG PO PRN (14:00)
[2019-10-14] MEDS: Diclofenac Sodium EC TAB* 25 MG PO PRN (17:44)
[2019-10-14] MEDS: Mirtazapine TAB* 15 MG PO SCH (21:11)
[2019-10-15] MEDS: clonazePAM TAB(*) 1 MG PO PRN ×2 (02:02→10:59)
[2019-10-15] MEDS: Venlafaxine EXT RELEASE CAP* 75 MG PO SCH (08:20)
[2019-10-15] MEDS: lamoTRIgine TAB(*) 25 MG PO SCH (08:21)
[2019-10-15] MEDS: busPIRone TAB* 15 MG PO SCH ×2 (08:21→20:38)
[2019-10-15] MEDS: Vitamin THERAPEUTIC TAB PO SCH (08:21)
[2019-10-15 08:49] VITALS: BP 115/70
--- NOTE | 2019-10-15 11:44 | CONS ---
PSYCHOLOGICAL REPORT: DATE OF CONSULT: 10/14/19 PROCEDURE CODE: [id number]. REASON FOR REFERRAL: The patient was self referred for psychological testing secondary to curiosity about what test may indicate in terms of diagnostics and personality attributes. TEST ADMINISTERED: Eve completed the [place] Multiphasic Personality Inventory-2 (MMPI-2), and was given feedback in individual conversation. She has also been seen in the context of cognitive behavioral group psychotherapy led by this senior medical writer consistently throughout her stay. RELEVANT HISTORY: Eve is a 44-year-old woman from the [facility], who has had 2 prior inpatient psychiatric admissions, one at [facility] in [place] and the other at [place], [place] secondary to eating disorder symptomatology. Presently, she is hospitalized secondary to depressive features, which included an overdose attempt. She endorsed suicidal thoughts upon evaluation and described other depressive features such as anhedonia, problems with sleep, and increased anxiety. She also had recurrence of eating disorder symptoms restricting food intake during the prior 2 days before her admission. She also described self- esteem issues, describing not feeling she is a good enough or mother for her 2 children, who are 12 and 10 years of age. She continues to experience difficulties with anxiety related symptoms and identifies intrusive compulsive thinking as problematic for her. 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 She describes being very involved with her work and cares about her work in great deal. She describes good marital adjustment, although she reports having some difficulties recently with feeling disparaged by her , but overall describes positive healthy adjustment. She denies being faced with making any decisions regarding marriage or vocational interest at present. She is anxious to return home to be with her children, but is able to collaborate with treatment goals and is quite patient in terms of discharge planning. Eve generally presents with good affect that is appropriately variable with discussion, although she can express dysphoric thoughts and emotion at times. She identifies the eating disorder symptoms, especially cognitive rumination as being intrusive currently and indeed has been purging after feeling guilty after eating. It is apparent she has some body image distortions that will need further work past her hospitalization here at [facility]. Eve describes good outpatient adjustment experiences and in present is likely to comply with ongoing clinical treatment. TEST RESULTS: Eve provides was felt to be a valid protocol despite elevating 2 of the 3 emotional duress scales to a significant degree. Concomitantly, she has very low scoring occurring on self esteem and emotional coping indices. This is often consistent with persons in an inpatient context as they are describing feeling quite overwhelmed by current emotional duress and unable to effectively cope with symptoms sets. Consequently, Eve elevates the neurotic triad to a moderate degree with more profound elevations occurring on the interpersonal duress scales. Discussion regarding the neurotic triad with Eve emphasized the importance of mind- body duality as persons who elevate these 3 scales including depression often tend to utilize repression as a primary coping mechanism and thus internalize negative emotions, which results in Eve's case, recurrent difficulties with headaches as well as fixation on body dysmorphic type thoughts. The interpersonal scales are reflective of duress in social context where she does not feel understood or supported by others. She also elevates the social introversion scale to very similar degree as she elevates the depression scale, a finding which was pointed out to her as being quite common and how this reflects the importance of cultivating and nurturing positive social contacts with others. 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 Discussion also addressed some difficulties with impulsivity as she has a very minor degree on the hypomania scale. Discussion ruled out any likely experience of manic episode focusing instead on impulsivity in the context of expression of negative emotions. IMPRESSIONS AND RECOMMENDATIONS: Eve impresses as continuing to struggle with body dysmorphic difficulties characterized by fixation on eating disorder type symptoms. She participates well in programming here and her intellectual curiosities quite evident in her participation levels both in the group contact as well as an individual conversation. She is obviously a very bright articulate and likely to continue to respond positively to cognitive behavioral interventions in the support of psychotherapies. She impresses as having good prognosis despite her historical difficulties with struggling with eating disorder problems, but given her vocational and marital stability, she is likely to be continued to manage her symptoms in an effective fashion and identifies with her role as a mother as being of very positive protective feature. Diagnostic impression supports major depressive disorder, recurrent, without psychosis as well as anorexia nervosa symptomatology as well as generalized anxiety disorder. [id number]/[facility] #: [id number] MAGY
--- NOTE | 2019-10-15 12:26 | PN ---
Subjective - Subjective Date of Service: 10/15/19 Service Type: 51267 Hosp care 35 min high complexity Subjective: Nursing Report: Patient was visible on unit, no behavioral incidents. Ate 2 meals. CC: "So so This patient was seen and evaluated today. She reported eating 2 meals without purging and plans to complete journal assignment today. She slept 5 hours. The patient reported attending day groups. Per nursing no behavioral issues or overnight events reported. Patient reported that she is tolerating medications without side effects. Objective - General Observations Appearance: Neat Appears Stated Age: Yes Stature: Thin Posture: Tense Eye Contact: Intense Behavior/Activity: Impulsive - Interaction Observations Attitude Towards Examiner: Anxious Stated Mood: Anxious Affect: Restricted Speech Pattern/Tone: Excessive Thought Process: Coherent Perception: WNL Thought Content: Obsessional, Self-Deprecatory Hallucination Type: Denies Delusion Type: Somatic - Cognitive Function Orientation: A&O x 4 Level of Consciousness: Awake - Medication Compliance Cooperative with Inpatient Medication Regimen: Yes - Group Participation Participates in Group Activities: Yes Assessment - Assessment Merits Inpatient Hospitalization: For Immediate Safety Clinical Impression: 43 year old Female with a history of Anorexia nervosa, Major depressive disorder, Generalized anxiety disorder presented to the emergency department with suicidal ideation and was admitted to the BSU at [facility]. Plan - Plan Treatment Plan: Name: GOPAL LUNA Birthdate: 1975 [id number] #Q30 minute observation with staff pass # Nutrition Consult completed # The patient requires psychiatric inpatient admission at this time to assure safety, receive treatment and work toward stabilization. # Remeron 15mg qhs # Do not give laxative # Buspar 15mg BID # Patient can use [employer] provided computer 1 hr per day with staff assistance to contact family friends and receive work email # Monitor food intake and monitor for 1 hour following eating to prevent purging. # Confirmed Effexor dose 375mg po daily this dose was confirmed from the patients pharmacy. # Continue Lamotrigine 50mg daily to monitor for any skin changes. # Collaboration with [facility] [employer] Joy Jung #Discharge goals include eating 2x daily without purging, complete one journal assignment per day, sleep 6hr or more per night, decrease time thinking about regional trainer to be less than 5 hours daily. #Goals before discharge include: Psychiatric Stabilization Tentative Discharge: Sunday Continued Medication Management: Continue Outpt Medication Medications: Current Medications Acetaminophen (Tylenol Tab*) 650 mg PO Q4H PRN PRN Reason: PAIN or TEMP > 101 F Last Admin: 10/13/19 08:46 Dose: 650 mg Al Hydrox/Mg Hydrox/Simethicone (Maalox Plus*) 30 ml PO Q4H PRN PRN Reason: INDIGESTION Buspirone HCl (Buspar Tab *) 15 mg PO BID [facility] Last Admin: 10/15/19 08:21 Dose: 15 mg Clonazepam (Klonopin Tab(*)) 1 mg PO TID PRN PRN Reason: ANXIETY Last Admin: 10/15/19 10:59 Dose: 1 mg Diclofenac Sodium (Voltaren Ec Tab*) 50 mg PO Q8H PRN PRN Reason: PAIN - MILD Last Admin: 10/14/19 17:44 Dose: 50 mg Lamotrigine (Lamictal Tab(*)) 50 mg PO DAILY [facility] Last Admin: 10/15/19 08:21 Dose: 50 mg Mirtazapine (Remeron Tab*) 15 mg PO BEDTIME [facility] Last Admin: 10/14/19 21:11 Dose: 15 mg Multivitamins (Theragran Tab*) 1 tab PO DAILY [facility] Last Admin: 10/15/19 08:21 Dose: 1 tab Naproxen (Naprosyn Tab*) 500 mg PO DAILY PRN PRN Reason: PAIN-MIGRAINE Last Admin: 10/14/19 13:52 Dose: 500 mg Sumatriptan Succinate (Imitrex Tab*) 100 mg PO DAILY PRN PRN Reason: MIGRAINE HEADACHE Last Admin: 10/14/19 14:00 Dose: 100 mg Venlafaxine HCl (Effexor Xr Cap*) 375 mg PO DAILY [facility] Last Admin: 10/15/19 08:20 Dose: 375 mg - Discharge Plan Discharge Plan: Inpatient Hospitalization
[2019-10-15] MEDS: Acetaminophen TAB* 325 MG PO PRN (12:41)
[2019-10-15] MEDS: Mirtazapine TAB* 15 MG PO SCH (20:37)
[2019-10-16] MEDS: clonazePAM TAB(*) 1 MG PO PRN ×2 (08:35→14:06)
[2019-10-16] MEDS: Vitamin THERAPEUTIC TAB PO SCH (08:36)
[2019-10-16] MEDS: lamoTRIgine TAB(*) 25 MG PO SCH (08:36)
[2019-10-16] MEDS: Venlafaxine EXT RELEASE CAP* 75 MG PO SCH (08:36)
[2019-10-16] MEDS: busPIRone TAB* 15 MG PO SCH ×2 (08:36→20:42)
--- NOTE | 2019-10-16 11:29 | PN ---
Subjective - Subjective Date of Service: 10/16/19 Service Type: 53851 Hosp care 35 min high complexity Subjective: Nursing Report: Patient was visible on unit, no behavioral incidents. Slept 7.25hr overnight. Attending group activities. CC: "I am mad that my system trainer wont talk to me This patient was seen and evaluated today. She reported feeling anxious because her system trainer will not take her phone call. She wrote a letter to him and had it discarded. She thinks that seeing her family and friends will help her. She plans to find another fitness class. She ate last evening and did not purge. The patient reports attending day groups. Per nursing no behavioral issues or overnight events reported. Patient reported that she is tolerating medications without side effects. Objective - General Observations Appearance: Neat Appears Stated Age: Yes Stature: Thin Posture: Tense Eye Contact: Average Behavior/Activity: Impulsive - Interaction Observations Attitude Towards Examiner: Cooperative, Anxious Stated Mood: Dysphoric Affect: Restricted Speech Pattern/Tone: Clear, Appropriate, Normal Volume Thought Process: Coherent Perception: WNL Thought Content: Obsessional Hallucination Type: Denies Delusion Type: Denies - Cognitive Function Orientation: A&O x 4 Level of Consciousness: Awake Cognition: WNL Estimated Intelligence: Normal Insight: WNL Judgment Within Normal Limits: Yes - Medication Compliance Cooperative with Inpatient Medication Regimen: Yes - Group Participation Participates in Group Activities: Yes Assessment - Assessment Merits Inpatient Hospitalization: For Immediate Safety Clinical Impression: 43 year old Female with a history of Anorexia nervosa, Major depressive disorder, Generalized anxiety disorder presented to the emergency department with suicidal ideation and was admitted to the BSU at [facility]. Plan - Plan Treatment Plan: Name: GOPAL LUNA Birthdate: 1975 [id number] #Q30 minute observation with staff pass # Nutrition Consult completed # The patient requires psychiatric inpatient admission at this time to assure safety, receive treatment and work toward stabilization. # Remeron 15mg qhs # Do not give laxative # Buspar 15mg BID # Patient can use [facility] provided computer 1 hr per day with staff assistance to contact family friends and receive work email # Monitor food intake and monitor for 1 hour following eating to prevent purging. # Confirmed Effexor dose 375mg po daily this dose was confirmed from the patients pharmacy. # Continue Lamotrigine 50mg daily to monitor for any skin changes. # Collaboration with [employer] Joy Jung #Discharge goals include eating 2x daily without purging, complete one journal assignment per day, sleep 6hr or more per night, decrease time thinking about personal financial counselor to be less than 5 hours daily. #Goals before discharge include: Psychiatric Stabilization # MMPI indicated a increase on hysteria and depression scales. Tentative Discharge: Sunday Continued Medication Management: Continue Outpt Medication Medications: Current Medications Acetaminophen (Tylenol Tab*) 650 mg PO Q4H PRN PRN Reason: PAIN or TEMP > 101 F Last Admin: 10/15/19 12:41 Dose: 650 mg Al Hydrox/Mg Hydrox/Simethicone (Maalox Plus*) 30 ml PO Q4H PRN PRN Reason: INDIGESTION Buspirone HCl (Buspar Tab *) 15 mg PO BID [facility] Last Admin: 10/16/19 08:36 Dose: 15 mg Clonazepam (Klonopin Tab(*)) 1 mg PO TID PRN PRN Reason: ANXIETY Last Admin: 10/16/19 08:35 Dose: 1 mg Diclofenac Sodium (Voltaren Ec Tab*) 50 mg PO Q8H PRN PRN Reason: PAIN - MILD Last Admin: 10/14/19 17:44 Dose: 50 mg Lamotrigine (Lamictal Tab(*)) 50 mg PO DAILY [facility] Last Admin: 10/16/19 08:36 Dose: 50 mg Mirtazapine (Remeron Tab*) 15 mg PO BEDTIME [facility] Last Admin: 10/15/19 20:37 Dose: 15 mg Multivitamins (Theragran Tab*) 1 tab PO DAILY [facility] Last Admin: 10/16/19 08:36 Dose: 1 tab Naproxen (Naprosyn Tab*) 500 mg PO DAILY PRN PRN Reason: PAIN-MIGRAINE Last Admin: 10/14/19 13:52 Dose: 500 mg Sumatriptan Succinate (Imitrex Tab*) 100 mg PO DAILY PRN PRN Reason: MIGRAINE HEADACHE Last Admin: 10/14/19 14:00 Dose: 100 mg Venlafaxine HCl (Effexor Xr Cap*) 375 mg PO DAILY [facility] Last Admin: 10/16/19 08:36 Dose: 375 mg - Discharge Plan Discharge Plan: Inpatient Hospitalization Outpatient Program: Private Clinician(s)
--- NOTE | 2019-10-16 13:49 | PN ---
BSU: Group Therapy Note - Service Type Service Type: 06421 Group Psychotherapy - Cognitive Behavioral Group Therapy ( CBT):Patient was attentive and participatory in CBT programming this morning, and remained in good behavioral control. Patient expressed positive insights regarding relevant treatment interventions and goals.
[2019-10-16] MEDS: Acetaminophen TAB* 325 MG PO PRN ×2 (14:06→19:29)
[2019-10-16] MEDS: Mirtazapine TAB* 15 MG PO SCH (20:42)
--- NOTE | 2019-10-17 08:12 | DS ---
Subjective - Subjective Service Types: [id number] [facility] Day Mgmt complex over 30 min Discharge Date: 10/17/19 Subjective: CC: " I hope I do not give in a call my call center trainer" Patient looks forward to seeing her family. She wants to live for her children and looks forward to being involved in things with her sister in law. The patient was seen and evaluated before discharge today. The patient reported did not have any purging events. Per nursing no behavioral issues or overnight events reported. Patient reported tolerating medications without side effects. Justification for admission: Immediate Safety. CC " I have been depressed" The patient was brought to [facility] on her own after having suicidal thoughts of overdosing on pills. The patient reported not feeling luis from doing things that once made her feel luis. She denied access to firearms. She reported not sleeping well and wakes up worrying a lot. She reported restricting her food intake over the last 2 days. The patient feels that she is not good enough for anything and despite her family telling her that she is pretty or beautiful she thinks they are lying. She often worries that she is not a good enough or mother. Patient remarked having mood swings and getting upset at her for wanting to take her and her children to [place]. The patient denied homicidal ideation intent or plan. The patient denied auditory and/ or visual hallucinations. The patient often feels left out and reflected on how this is a reoccurring theme in her life. Depression Patient reported feeling depressed and having diminished interests which were found to be enjoyable in the past. She reported having crying spells , and feeling hopeless , and having feelings of worthlessness. She reported unintentional weight loss and loss of appetite. She reported interruption of sleep , and overwhelming feelings of guilt or decreased concentration. She has been having increased suicidal thoughts. Eating disorders: Patient has a history of anorexia and has been restricting her food intake for the past 2 days. Anxiety She reported feeling restless, and often worries about being a good enough or mother. Bipolar She reported rapid mood swings that do not last more than one day. She describes them as intense periods of irritability. She denied symptoms of parveen such as having many ideas at once, increased talkativeness where no one can interrupt. Denied feeling irritable most of the time while having an persistent abundance of energy , having the decreased need to sleep for days , or prolong periods of feeling on top of the world. Denied impulsive risky sexual encounters. Denied spending money recklessly , going on spending sprees wiping out savings. Denied impulsively traveling out of town or country, having super narayan, and unrealistic wealth or fame. Psychosis Does not endorse hearing things that other people do not hear or seeing things other people do not see. Denied feeling that TV is making references. Denied feeling that people are spying , following , or reading their thoughts. Phobias: Patient denied having excessive fear of a particular thing or situation. PTSD Denied flashbacks, nightmares and avoidance of a prior traumatic event. PAST PSYCHIATRIC HISTORY: Prior Diagnosis : Anorexia nervosa, Major depressive disorder, Generalized anxiety disorder. History of past Psychiatric Hospitalizations: 2 prior psychiatric admission for anorexia at [facility] and [facility] in [place]. History of past suicide/homicide attempts : 2 past suicide attempts around age 16 , both times she Overdosed on pills. She denied repeated self injurious behavior. Denied history of violence. Outpatient follow-up: Dr. Cool Psychiatrist in [facility]. Patient currently in couples counseling. Medications: Past trials of medications include Abilify, seroquel. Current medications include Effexor 375mg po daily since 3 years ago by PCP, Klonopin for anxiety, Lamotrigine 25mg po daily started one week ago by Psychiatrist. Guardianship: None. FAMILY HISTORY: - Suicide: Denied family history of suicide. - Mental illness: Sister has bipolar disorder, mother depression - Substance abuse: Denied substance abuse among family members. SUBSTANCE ABUSE HISTORY: - EtOH: 1-2 drinks per year. - Tobacco: Denied - Cannabis: Denied - Heroin: Denied - Cocaine: Denied - Substance abuse treatment: Denied past substance abuse treatment SOCIAL HISTORY: - Born in [place], [place] and raised by her mother, her father left her mother when she was , She now has some contact with her biological father. - Education: No history of special education. - Living situation: Currently lives in [facility] with her and 2 children - Employment history: Works as a leasing specialist in [place] - Relationship: and has 2 children. - Legal history: Denied - service history: Denied PAST MEDICAL HISTORY: Headaches, history of UTI, Endometriosis. Surgical history includes hysterectomy and oophorectomy - Allergies: Denied drug or other allergies. Physical Exam: Please see ED note Mental Status Exam on Admission APPEARANCE : 43 year old female who appears stated age. Patient is thin, and appears to have fair hygiene and grooming. BEHAVIOR: Cooperative , calm EYE CONTACT: Fair PSYCHOMOTOR ACTIVITY: No psychomotor agitation or retardation. MOVEMENTS: No abnormal movements observed. SPEECH : Normal rate, rhythm, volume and tone. MOOD : "Depressed " AFFECT : Type is depressed and anxious, Range is restricted Mood Congruent Incongruent THOUGHT PROCESS: Formulated and organized in a logical, linear goal directed manner. No flight of ideas, neologism (made up words) , perseveration , tangential , loose associations , or circumstantiality, Poverty of thought, thought blocking THOUGHT CONTENT: preoccupation with body image PERCEPTION: No current auditory or visual hallucinations. Doesnt appear to be responding to internal cues. No evidence of depersonalization , de-realization, or illusions SUICIDALITY Suicidal ideation HOMICIDALITY Denied homicidal ideation, intent or plan. Insight/judgment: Poor insight and judgment ORIENTATION: Oriented to self, location, and time. Diagnosis on Admission: Anorexia nervosa, Major depressive disorder, Generalized anxiety disorder. Diagnosis on Discharge: Major depressive disorder, bulimia nervosa, histrionic personality disorder Condition at the time of discharge: At the time of discharge the patient showed improvement of sleep and appetite. The patient was not a danger to self or others. The patient denied suicidal ideation, intent or plan. The patient denied homicidal targets, ideation, intent or plan. This patient participated in psychosocial rehabilitation and gained some insight into problems. The patient gained insight into mental illness, triggers, and treatment. The patient took medication as prescribed. The patient denied side effects of medication and objective signs of side effects were not evident. Therapy Resources were offered to the patient. Patient was given a supply of prescriptions at the time of discharge. The patient plans to attend follow up care with the follow up arrangements that were discussed and put in place. Patient was asked to keep appointments as scheduled, take medication as prescribed, have routine follow up care with their primary care physician and refrain from any use of alcohol or drugs. Objective - General Observations Appearance: Neat Appears Stated Age: Yes Stature: Thin Posture: WNL Eye Contact: Average Behavior/Activity: WNL - Interaction Observations Attitude Towards Examiner: Cooperative Stated Mood: Euthymic, Anxious Affect: Full Speech Pattern/Tone: Appropriate, Normal Volume Thought Process: Coherent Perception: WNL Thought Content: WNL Hallucination Type: None Delusion Type: None - Cognitive Function Orientation: A&O x 4 Level of Consciousness: Awake Cognition: WNL Estimated Intelligence: Normal - Medication Compliance Cooperative with Inpatient Medication Regimen: Yes - Group Participation Participates in Group Activities: Yes Treatment Course & Assessment Clinical Course & Impression: Hospital course part A: 43 year old Female with a history of Anorexia nervosa, Major depressive disorder, Generalized anxiety disorder presented to the emergency department with suicidal ideation and was admitted to the BSU at [facility]. Hospital course part B: Labs ordered included CBC, CMP, UDS, TSH, HBA1c, TSH, EKG, Toxicology screen, Urine analysis, and lipid profile. Labs were reviewed and vital signs were monitored during the course of admission. MMPI indicated a increase on hysteria and depression scales. EKG ordered and indicated normal results. The patient was admitted to the adult behavioral unit and placed on 15 minute check for safety. At a later time the patient was on Q30 minute observation and staff pass privileges. With those limits being extended, the patient was safe on all checks and there were no occurrence of behavioral incidents. The patient did well on the unit and went to groups. The patient maximized the therapeutic value offered by the inpatient psychiatric care environment. The staff monitored food intake and her for 1 hour following eating to prevent purging. She was advised about eating disorder resources. The patient tolerated medication changes without side effects. Group therapy and services were offered. The risks, benefits, and alternative treatment options were discussed as well as of the risks of refusing treatment. She was informed of the risk of serotonin syndrome given that her treatment regimen, and did not have signs of serotonin during the course of hospitalization. Treatment associated risks discussed with the patient. After this discussion the patient made an acknowledgement of this understanding. Follow up care appointments were put in place. HBA1c, glucose, and lipid panel was ordered to monitor metabolic status. Monitoring for metabolic changes was reviewed and it was emphasized to the patient to be continued to be monitored upon discharge. The patient was informed not to abruptly stop or start new medications before consulting with a medical professional. Admission goals include eating 2x daily without purging, complete one journal assignment per day, maintain regular sleep, decrease time thinking about personal chef. The patient showed Improvements since the time of admission which include: increased food intake, a decrease in anxiety and depression. The patient expressed their readiness for discharge but also was worried that she might contact her personal chef. The patient denied suicidal and or homicidal ideation intent or plan. Overall, the patient responded well to inpatient treatment as evidenced by their report of strengthening of coping mechanisms, reduced distress, and a more positive outlook on their circumstances. Of note there was an improvement of recognizing how emotional state can effect mood and behavior. The patient reported that she often thinks the worst of things and is better than she says. Safety precautions were put in place which included involving the patient and their family to closely monitor for changes in mental state. In addition, implementing follow up care, screening for the need to remove/securing firearms , weapons and stockpile of medications. Patient/ family instructed to immediately call 911 should any safety concerns arise. B-HCG is negative for current . She was informed of the risks associated with medication in . In the event that she becomes in the future and was advised to talk with her outpatient healthcare provider about starting or stopping medications during . The patient was advised of the 24 hour / 7 days a week availability of the emergency room and to call 911 in the event of an emergency such as being suicidal and/ or homicidal. The patient was informed of the contact information for [facility], Suicide Prevention and Crisis Services, National Suicide Prevention Lifeline, [facility], Alcoholics Anonymous, and [facility]. Medications started included Buspar 15mg BID for anxiety, remeron 15mg qhs, and increased lamotrigine to 50mg daily, She resumed effexor at 375mg po daily. The patients behaviors and emotions and anxiety showed the most benefit from CBT approached therapy. Family was contacted before discharge and a baseline was established. At this time both the patient and family are eager for discharge and are in agreement with the discharge plan and can receive care in the less restrictive outpatient setting. They were advised on how the days following discharge can be a vulnerable period and to look out for warning signs associated with decompensation and progression of mental illness. They were notified of the resources available in the event these situations arise and confirmed that the patient has no access to firearms or stockpiles of medications.[facility]CI information was provided. Her plans to monitor her medications at home and check in with her and look for any behavioral changes. Consults included to nutrition for food restriction. Patient was not assaultive or a behavioral problem during the course of admission. The patient showed good hygiene and was able to carry out activities of daily living. Patient will be discharged to live at home. Follow up appointment with her therapist, Dr. Cool, and PCP Patient informed of follow up appointment times. See more details for follow up care in the discharge plan. Risk factors were mitigated by involving the patients family in her care. Implemented precautionary safety measures her confirmed that she has no no access to firearms, provided mental health treatment , stabilization of psychiatric symptoms, provided resources to outpatient services, as well as provided a supportive care environment and therapy resources during the course of hospitalization. A safety plan was created by the patient and this was reviewed with the patient and treatment team. The patient verbalized the steps they would take to ensure their safety in the event of a crisis or they begin to show signs that they have identified when they are not doing well. Risk factors:, history of a mental health condition, Prior history of a suicide attempt. Eating disorder, recent hospitalization. Relationship turmoil. Protective factors: Multiple support systems from care providers including therapist, marriage counselor, PCP, Psychiatrist. She is Female, At discharge patient did not have suicidal and or homicidal ideation, intent or plan. No suicide attempts in the last year. She is , has children that she lives with. Has social/ family support system. No history of service. Currently no feelings of hopelessness, not in an occupation of social isolation , doesnt have multiple medical conditions, no family history of suicide, doesn t have access to firearms. Doesnt have command hallucinations and or psychotic features at this time. No current substance abuse. No current alcohol abuse. Not an anniversary of a loss of a loved one. No recent job loss or of loved one. The patient is currently future orientated. Patient engaged in treatment and compliant with medication. No barriers to seek mental health treatment. Not incarcerated. Not middle or older age. No history of self- injurious behavior. The patient did not have a cultural belief that supported suicide. Patient did not experience a loss of someone close that recently by suicide. Sodium 138 mmol/L (135-145) 10/06/19 17:40 Potassium 3.9 mmol/L (3.5-5.0) 10/06/19 17:40 BUN 12 mg/dL (6-24) 10/06/19 17:40 Creatinine 0.82 mg/dL (0.51-0.95) 10/06/19 17:40 Hemoglobin A1c 4.9 % (4.0-5.6) 10/08/19 07:49 Calcium 9.2 mg/dL (8.6-10.3) 10/06/19 17:40 AST 17 U/L (13-39) 10/06/19 17:40 ALT 13 U/L (7-52) 10/06/19 17:40 Triglycerides 89 mg/dL 10/08/19 07:50 Cholesterol 236 mg/dL 10/08/19 07:50 LDL Cholesterol 156 mg/dL 10/08/19 07:50 Merits Inpatient Hospitalization: No Clear for Discharge: Adequate Clinical Respons Discharge Planning - Discharge Planning Discharge Plan: Outpatient Follow Up Outpatient Program: Private Clinician(s) Recommendations for Continuing Care: Medication Management, Psychotherapy Medications: Current Medications Acetaminophen (Tylenol Tab*) 650 mg PO Q4H PRN PRN Reason: PAIN or TEMP > 101 F Last Admin: 10/16/19 19:29 Dose: 650 mg Al Hydrox/Mg Hydrox/Simethicone (Maalox Plus*) 30 ml PO Q4H PRN PRN Reason: INDIGESTION Buspirone HCl (Buspar Tab *) 15 mg PO BID SABRINA Last Admin: 10/16/19 20:42 Dose: 15 mg Clonazepam (Klonopin Tab(*)) 1 mg PO TID PRN PRN Reason: ANXIETY Last Admin: 10/16/19 14:06 Dose: 1 mg Diclofenac Sodium (Voltaren Ec Tab*) 50 mg PO Q8H PRN PRN Reason: PAIN - MILD Last Admin: 10/14/19 17:44 Dose: 50 mg Lamotrigine (Lamictal Tab(*)) 50 mg PO DAILY [facility] Last Admin: 10/16/19 08:36 Dose: 50 mg Mirtazapine (Remeron Tab*) 15 mg PO BEDTIME [facility] Last Admin: 10/16/19 20:42 Dose: 15 mg Multivitamins (Theragran Tab*) 1 tab PO DAILY [facility] Last Admin: 10/16/19 08:36 Dose: 1 tab Naproxen (Naprosyn Tab*) 500 mg PO DAILY PRN PRN Reason: PAIN-MIGRAINE Last Admin: 10/14/19 13:52 Dose: 500 mg Sumatriptan Succinate (Imitrex Tab*) 100 mg PO DAILY PRN PRN Reason: MIGRAINE HEADACHE Last Admin: 10/14/19 14:00 Dose: 100 mg Venlafaxine HCl (Effexor Xr Cap*) 375 mg PO DAILY [facility] Last Admin: 10/16/19 08:36 Dose: 375 mg Discharge Planning: Prescriptions provided for discharge [x] Yes [] No Follow up care details as per social work arrangements. Patient response to discharge plan: [x] eager for discharge [] agreeable with discharge plan [] ambivalent about discharge [] disagrees with discharge today
[2019-10-17] MEDS: Vitamin THERAPEUTIC TAB PO SCH (08:58)
[2019-10-17] MEDS: clonazePAM TAB(*) 1 MG PO PRN (08:58)
[2019-10-17] MEDS: lamoTRIgine TAB(*) 25 MG PO SCH (08:59)
[2019-10-17] MEDS: busPIRone TAB* 15 MG PO SCH (08:59)
[2019-10-17] MEDS: Venlafaxine EXT RELEASE CAP* 75 MG PO SCH (09:00)
== END 2019-10-17 12:20 | disposition home or self-care (01) | DRG 754 ==
LOC: ED 15:59 → BSU 18:00
PROVIDERS: ADMIT Psychiatry & Neurology Psychiatry; ATTEND Psychiatry & Neurology Psychiatry
PROC: GZHZZZZ Group Psychotherapy (ICD-10-PCS; principal; 2019-10-09)
DX: F32.9 Major depressive disorder, single episode, unspecified (principal); F50.00 Anorexia nervosa, unspecified; R45.851 Suicidal ideations; F50.2 Bulimia nervosa; N39.0 Urinary tract infection, site not specified; F60.4 Histrionic personality disorder; F41.1 Generalized anxiety disorder; G43.909 Migraine, unspecified, not intractable, without status migrainosus; Z90.710 Acquired absence of both cervix and uterus; Z68.20 Body mass index [BMI] 20.0-20.9, adult; Z91.5 Personal history of self-harm; Z79.899 Other long term (current) drug therapy
CPT/HCPCS: 36415; 80053; 80061; 80307; 80320; 80329; 81003; 83036; 84443; 84702; 85025; 90853; 93005; 96130; 99222; 99231; 99233; 99238; 99285; A9270-GY; G0480